=== PATIENT | male | born 1965 | race Caucasian/White ===

== ENCOUNTER 2019-01-20 15:25 | Inpatient (IN) | payer OTHER ==
[~2019-01-20] VITALS: Ht 177.8 cm; Wt 72.3 kg
[2019-01-20 15:26] VITALS: BP 165/117
[2019-01-20 16:22] LABS: ABSOLUTE NEUTROPHILS 4.3 thou/uL (1.4-8.2); BASOPHILS 0.9 % (0.0-2.0); EOSINOPHILS 0.8 % (0.0-3.0); HEMATOCRIT 47.1 % (42.0-52.0); HEMOGLOBIN 16.4 gm/dL (14.0-18.0); LYMPHOCYTES 28.8 % (24.0-44.0); MCH 33.7 pg (26.0-34.0); MCHC 34.8 g/dL (28.0-37.0); MCV 96.9 fL (80.0-100.0); MONOCYTES 8.7 % (1.0-8.0); PLATELET COUNT 351 thou/uL (150-400); POLYS 60.8 % (36.0-66.0); RBC 4.86 mil/uL (4.50-6.00); RDW 13.6 % (10.5-14.5)
[2019-01-20 16:32] LABS: ANION GAP 8 mmol/L (7-16); BUN 13 mg/dL (7-18); CALCIUM 8.6 mg/dL (8.5-10.1); CHLORIDE 94 mmol/L (98-107); CO2 27 mmol/L (21-32); GLUCOSE 105 mg/dL (74-106); POTASSIUM 3.7 mmol/L (3.5-5.1); SODIUM 129 mmol/L (136-145)
[2019-01-20 16:41] LABS: ALBUMIN 4.1 g/dL (3.4-5.0); SGOT 17 U/L (15-37); SGPT 13 U/L (30-65); TOTAL BILIRUBIN 0.4 mg/dL (<0.1-1.0); TOTAL PROTEIN 7.7 g/dL (6.4-8.2); TROPONIN-I <0.06 ng/mL (<0.06)
[2019-01-20 18:04] VITALS: BP 127/80
[2019-01-20] MEDS ORDERED: COZAAR 25 MG TA25 M1 PO (19:12)
[2019-01-20] MEDS ORDERED: HYDROCHLOROTHIA25 M2 PO (19:13)
[2019-01-20] MEDS ORDERED: EZALLOR SPRINKLE5 MG PO (19:13)
[2019-01-20] MEDS ORDERED: AZITHROMYCIN500 MG PO (19:16)
[2019-01-20 19:32] VITALS: BP 140/81
--- NOTE | 2019-01-20 22:42 | NUR ---
PATIENT WAS A NEW ADMISSION TO THE UNIT THIS SHIFT. HE ARRIVED VIA CART FROM THE ER AND WAS ABLE TO AMBULATE TO THE BED WITH ASSISTANCE INCIDENT FREE. PATIENT IS FULLY ALERT AND ORIENTED AND WAS ABLE TO PARTICIPATE FULLY IN ADMISSION PROCESS. NO COMPLAINTS OF DIZZINESS WHEN STANDING. PATIENT WAS TAKEN DOWNSTAIRS FOR CT OF HEAD WHICH CAME BACK NEGATIVE. NO COMPLAINTS OF PAIN OR NAUSEA. NURSE TO COMPLETE ADMISSION AND INITIATE PLAN OF CARE.
[2019-01-20 23:45] VITALS: BP 112/59
--- NOTE | 2019-01-21 03:34 | NUR ---
PATIENT IS ADVANCING IN HIS CARE PLAN. VITAL SIGNS STABLE WITH PATIENT HAVING NO COMPLAINTS OF PAIN OR NAUSEA. FULLY ORIENTED, PATIENT IS ABLE TO CALL FOR NEEDS. UP MULTIPLE TIMES WITH ASSISTANCE INCIDENT FREE, PATIENT IS UPSET AT BEING CONSIDERED A HIGH FALL RISK BUT HAS AGREED TO LET US WALK WITH HIM FOR THE TIME BEING. PATIENT DENIES DIZZINESS AND HAS APPEARED STRONG AND BALANCED WHEN WALKING. CONTINUE PLAN OF CARE.
[2019-01-21 04:27] VITALS: BP 132/73
[2019-01-21 07:45] VITALS: BP 136/90
--- NOTE | 2019-01-21 08:06 | EKG ---
[address] [address] ELECTROCARDIOGRAM REPORT Name: NYA,RAFFAELE Room #: 356-P ADM IN M.R.#: [id number] Admission: 01/20/19 Attend Phys: Nataliia Oneill MD Discharge: Date of : 63 Report #: [id number] THIS REPORT FOR: //name// [facility] ED Test Date: 2019-01-20 Test Time: 15:33:41 Pat Name: RAFFAELE FAY Department: Room: [facility] Gender: M Daycare Worker: AURELIO : 1965 Requested By: Tyrese Waller Order Number: [id number] MD: Maurice Kelly Measurements Intervals [place] Rate: 85 P: 78 WA: 167 QRS: 56 QRSD: 101 T: 75 QT: 352 QTc: 419 Interpretive Statements Sinus rhythm Left atrial enlargement Baseline wander in lead(s) I,II,aVR,aVF No previous ECG available for comparison Electronically Signed On 01-21-2019 8:06:15 CDT by Maurice Kelly [email or web address] <ELECTRONICALLY SIGNED> By: Maurice Kelly MD 01/21/19 0806 [id number] 1533 Maurice Kelly MD /JERO
[2019-01-21 08:09] LABS: ABSOLUTE NEUTROPHILS 6.1 thou/uL (1.4-8.2); BASOPHILS 0.5 % (0.0-2.0); EOSINOPHILS 0.7 % (0.0-3.0); HEMOGLOBIN 16.6 gm/dL (14.0-18.0); LYMPHOCYTES 25.7 % (24.0-44.0); MCV 97.3 fL (80.0-100.0); MONOCYTES 8.6 % (1.0-8.0); PLATELET COUNT 353 thou/uL (150-400); POLYS 64.5 % (36.0-66.0); RBC 5.03 mil/uL (4.50-6.00); RDW 13.8 % (10.5-14.5); WBC 9.5 thou/uL (4.0-11.0)
[2019-01-21 08:24] LABS: ANION GAP 8 mmol/L (7-16); BUN 9 mg/dL (7-18); CALCIUM 9.7 mg/dL (8.5-10.1); CHLORIDE 99 mmol/L (98-107); CO2 28 mmol/L (21-32); CREATININE 0.9 mg/dL (0.7-1.3); GLUCOSE 113 mg/dL (74-106); MAGNESIUM 2.3 mg/dL (1.8-2.4); POTASSIUM 4.5 mmol/L (3.5-5.1); SODIUM 135 mmol/L (136-145); TROPONIN-I <0.06 ng/mL (<0.06)
[2019-01-21 11:50] VITALS: BP 117/79
[2019-01-21 11:52] VITALS: BP 136/90
[2019-01-21 11:54] VITALS: BP 117/60
[2019-01-21] MEDS ORDERED: ZPAK PO (12:07)
--- NOTE | 2019-01-21 14:35 | NUR ---
INITIAL ASSESSMENT: Received consult for pt's living situation. SW reviewed chart and spoke with nursing and attending physician. Pt was admitted from home due to near syncope/hyponatremia. Pt is currently off the unit having testing. Neuro and cardio consulted. Per chart, pt lives at home. Therapy ordered today to evaluate pt for recommendations for discharge needs. SW will follow up with pt at a later time. SW is following to assist as needed with discharge planning.
[2019-01-21 15:28] VITALS: BP 110/76
--- NOTE | 2019-01-21 15:49 | 2DMMODE ---
[address] [address] 2 D/M-MODE ECHOCARDIOGRAM Name: RAFFAELE AFY Room #: 356-P ADM IN M.R.#: [id number] Admission: 01/20/19 Attend Phys: Nataliia Oneill Discharge: Date of : 63 Report #: [id number] THIS REPORT FOR: //name// APPROVED REPORT Study performed: 01/21/2019 14:12:15 EXAM: Comprehensive 2D, Doppler, and color-flow Echocardiogram Patient Location: Echo lab Status: routine BSA: 1.89 HR: 72 bpm BP: 117/60 mmHg Rhythm: NSR Other Information Study Quality: Good Indications COPD Syncope Hypertension/HDD 2D Dimensions IVC: 17.00 mm Volumes Left Atrial Volume (Systole) LA ESV Index: 20.00 mL/m2 Left Ventricle The left ventricle is normal size. There is normal left ventricular wall thickness. The left ventricular systolic function is normal. The left ventricular ejection fraction is within the normal range. LVEF is 60%. Moderate diastolic dysfunction is present (pseudonormal filling). Right Ventricle The right ventricle is normal size. The right ventricular systolic function is normal. Atria The left atrium size is normal. The right atrium size is normal. [address] [address] 2 D/M-MODE ECHOCARDIOGRAM Name: RAFFAELE FAY Room #: 356-P ADM IN M.R.#: [id number] Admission: 01/20/19 Attend Phys: Nataliia Oneill Discharge: Date of : 63 Report #: [id number] Aortic Valve The aortic valve is normal in structure. No aortic regurgitation is present. There is no aortic valvular stenosis. Mitral Valve The mitral valve is normal in structure. There is no mitral valve regurgitation noted. No evidence of mitral valve stenosis. Tricuspid Valve The tricuspid valve is normal in structure. There is no tricuspid valve regurgitation noted. Unable to assess PA pressure. Pulmonic Valve Pulmonic valve is not well visualized. Great Vessels The aortic root is normal in size. IVC is normal in size and collapses >50% with inspiration. Pericardium There is no pericardial effusion. <Conclusion> The left ventricle is normal size. LVEF is 60%. The aortic valve is normal in structure. The mitral valve is normal in structure. The tricuspid valve is normal in structure. Pulmonic valve is not well visualized. There is no pericardial effusion. <ELECTRONICALLY SIGNED> By: Héctor Pereyra MD 01/21/19 1549 1549 1549 Héctor Pereyra MD /INF
--- NOTE | 2019-01-21 18:07 | NUR ---
PT DISCHARGE INSTRUCTIONS REVIEWED. PT INSTRUCTIONS, EDUCATION INFORMATION AND HOME MEDS SENT WITH PT. ALL QUESTIONS ANSWERED. TELE AND PIV WERE DISCONTINUED EARLIER.
--- NOTE | 2019-01-23 14:17 | HC ---
[facility] [place] [address] CONSULTATION Name: RAFFAELE FAY Room #: 356-P [facility] IN M.R.#: [id number] Admission: 01/20/19 Attend Phys: Nataliia Oneill MD Discharge: 01/21/19 Date of : 63 Report #: [id number] THIS REPORT FOR: //name// CC: Shawn Joshua Oneill DATE OF SERVICE: 01/20/2019 HISTORY OF PRESENT ILLNESS: This is a 54-year-old male patient who was admitted with multiple episodes of syncope. This patient developed a cough and then he started having these multiple episodes of dizziness and near syncope. None of them happened when he was lying down and all of them happened when he was standing. He was coughing, but he is not sure whether every one of them preceded cough. He said he did not have these kind of episodes in the past. REVIEW OF SYSTEMS: Indicate that he is a heavy smoker. He drinks alcohol. He developed some infection and cough, for which he was taking Zithromax. His cough was severe. He does have a history of COPD and hypertension. He said he had TIAs in the past. He is not sure what symptoms he had at that time. A 14-point review of system was carried out and it was relevant 14-point review of system. PAST MEDICAL HISTORY: Positive for cholesterol problems and COPD. FAMILY HISTORY: Unremarkable. SOCIAL HISTORY: He smokes and drinks alcohol. PHYSICAL EXAMINATION: Indicate he is alert, responsive, able to follow simple and complex command. His cranial nerve examinations appears unremarkable. His strength, sensation, reflexes are symmetrical. There is no meningeal sign. I could not look at the patient's fundus. His cardiac examinations appears unremarkable. He does have rhonchi on both sides, but does not appear to be in marked respiratory distress. Blood pressure is 148/81, respirations 18, pulse is 78, temperature is 98.5. LABORATORY DATA: His white count is 7. His sodium is only 129. I got a CT scan of the head done on this patient, which is unremarkable. IMPRESSION: I agree with your impression that the most likely etiology for the patient's symptom is systemic including cough, syncope. We will get some more neurological workup done tomorrow, but I think the emphasis should be to continue systemic workup, which I will defer to you. [address] [place] [address] CONSULTATION Name: RAFFAELE FAY Room #: 356-P [facility] IN M.R.#: [id number] Admission: 01/20/19 Attend Phys: Nataliia Oneill MD Discharge: 01/21/19 Date of : 63 Report #: [id number] Thank you very much for this referral. <ELECTRONICALLY SIGNED> By: Grover Kwon MD 01/23/19 1417 [id number] 1217 Grover Kwon MD /nt
== END 2019-01-21 18:23 | disposition home or self-care (01) | DRG 312 ==
LOC: ER 15:25 → 3W 17:40 → EROBS 17:40 → 3W 18:09
PROVIDERS: Emergency Medicine; ADMIT Internal Medicine
DX: I95.1 Orthostatic hypotension (principal); E87.1 Hypo-osmolality and hyponatremia; G45.9 Transient cerebral ischemic attack, unspecified; I10 Essential (primary) hypertension; J44.9 Chronic obstructive pulmonary disease, unspecified; F17.210 Nicotine dependence, cigarettes, uncomplicated; E78.00 Pure hypercholesterolemia, unspecified; E78.5 Hyperlipidemia, unspecified; Z79.899 Other long term (current) drug therapy; Z82.49 Family history of ischemic heart disease and other diseases of the circulatory system; Z83.3 Family history of diabetes mellitus
CPT/HCPCS: 10879

== ENCOUNTER 2021-02-04 18:59 | Emergency (ER) | payer OTHER ==
[~2021-02-04] VITALS: Ht 175.3 cm; Wt 97.5 kg
[~2021-02-04 18:59] MED LIST: AZITHROMYCIN500 MG PO; COZAAR 25 MG TA25 M1 PO; EZALLOR SPRINKLE5 MG PO; HYDROCHLOROTHIA25 M2 PO; ZPAK PO
[2021-02-04 19:54] LABS: ABSOLUTE NEUTROPHILS 3.8 thou/uL (1.4-8.2); EOSINOPHILS 1.2 % (0.0-3.0); HEMATOCRIT 39.7 % (42.0-52.0); HEMOGLOBIN 13.9 gm/dL (14.0-18.0); MCH 34.6 pg (26.0-34.0); MCV 99.1 fL (80.0-100.0); MONOCYTES 8.2 % (1.0-8.0); PLATELET COUNT 284 thou/uL (150-400); POLYS 58.6 % (36.0-66.0); RBC 4.01 mil/uL (4.50-6.00); RDW 13.6 % (10.5-14.5); WBC 6.5 thou/uL (4.0-11.0)
[2021-02-04 19:59] LABS: ANION GAP 11 mmol/L (7-16); BUN 7 mg/dL (7-18); CALCIUM 8.6 mg/dL (8.5-10.1); CHLORIDE 98 mmol/L (98-107); CO2 24 mmol/L (21-32); CREATININE 0.8 mg/dL (0.7-1.3); GLUCOSE 102 mg/dL (74-106); POTASSIUM 3.9 mmol/L (3.5-5.1); SODIUM 133 mmol/L (136-145)
[2021-02-04 20:05] LABS: ALBUMIN 3.6 g/dL (3.4-5.0); DIRECT BILIRUBIN < 0.1 mg/dL (<0.1-0.2); LIPASE 341 U/L (73-393); SGOT 29 U/L (15-37); SGPT 52 U/L (30-65); TOTAL BILIRUBIN 0.2 mg/dL (0.2-1.0)
[2021-02-04] MEDS ORDERED: ZOFRAN ODT4 MG PO (20:18)
[2021-02-04 21:20] VITALS: BP 151/77
--- NOTE | 2021-02-05 08:14 | EKG ---
[address] [address] ELECTROCARDIOGRAM REPORT Name: RAFFAELE WIN Room #: DEP Fredi#: [id number] Admission: 02/04/21 Attend Phys: Discharge: 02/04/21 Date of : 63 Report #: [id number] [facility] ED Test Date: 2021-02-04 Test Time: 19:50:54 Pat Name: RAFFAELE WIN Department: Room: Gender: Claim Administrator: idalia : 1965 Requested By: Aaron Garica Order Number: [id number] MD: Rell Bui Measurements Intervals [place] Rate: 76 P: 62 ID: 168 QRS: 35 QRSD: 107 T: 55 QT: 402 QTc: 453 Interpretive Statements Sinus rhythm Compared to ECG 01/20/2019 15:33:41 Atrial abnormality no longer present Electronically Signed On 02-05-2021 8:14:39 [employer] by Rell Bui [email or web address] <ELECTRONICALLY SIGNED> By: Rell Bui MD, [facility] 02/05/21 0814 1950 [facility] Rell Bui MD, FACC /EPI
== END 2021-02-04 21:22 | disposition home or self-care (01) ==
LOC: ER 18:59
PROVIDERS: Student in an Organized Health Care Education/Training Program
DX: R11.2 Nausea with vomiting, unspecified (principal); Z20.822 Contact with and (suspected) exposure to COVID-19; J44.9 Chronic obstructive pulmonary disease, unspecified; E78.00 Pure hypercholesterolemia, unspecified; I10 Essential (primary) hypertension; F17.210 Nicotine dependence, cigarettes, uncomplicated; Z79.899 Other long term (current) drug therapy

== ENCOUNTER 2021-05-01 16:14 | Emergency (ER) | payer OTHER ==
[~2021-05-01] VITALS: Ht 177.8 cm; Wt 99.3 kg
[~2021-05-01 16:14] MED LIST changes: +ZOFRAN ODT4 MG PO
[2021-05-01 19:18] VITALS: BP 132/73
== END 2021-05-01 19:48 | disposition left against medical advice (07) ==
LOC: ER 16:14
DX: B34.9 Viral infection, unspecified (principal); Z20.822 Contact with and (suspected) exposure to COVID-19; J44.9 Chronic obstructive pulmonary disease, unspecified; I10 Essential (primary) hypertension; E78.00 Pure hypercholesterolemia, unspecified; F17.210 Nicotine dependence, cigarettes, uncomplicated; F12.90 Cannabis use, unspecified, uncomplicated; Z79.899 Other long term (current) drug therapy